=== PATIENT | female | born 1955 | race Caucasian/White ===

== ENCOUNTER 2016-09-03 16:43 | Emergency (ER) | payer BC, OTHER ==
[2016-09-03 16:54] VITALS: O2SAT 95
--- NOTE | 2016-09-03 17:09 | ERPHSYRPT ---
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 no swelling or bruising noted to lt ankle. pain radiates up to lt calf mid. pedal pulse present. no other injury Triage Nursing Assessment: see triage Physician History: The patient is a 61-year-old female [place] 4 hours ago hurting her left ankle. She heard a pop and that scared her. She was able to walk on it. There is no numbness or tingling. Her past medical history is significant for a fracture in her right ankle years ago and hypertension and depression. Occurred: this afternoon, hours ago (4) Reason for Fall: lost balance, fell from standing pos Injuries/Pain Location: lower extremity Loss of Consciousness: no loss of consciousness Quality: aching Severity of Pain-Max: mild Severity of Pain-Current: mild Modifying Factors: Improves With: nothing Associated Symptoms (Fall): denies symptoms Allergies/Adverse Reactions: No Known Drug Allergies Allergy (Unverified 09/03/16 16:54) Home Medications: Losartan/Hydrochlorothiazide [Losartan-Hctz 100-25 mg Tab] 1 each PO DAILY 09/03 [History] Paroxetine HCl [Paxil] 30 mg PO DAILY 09/03/16 [History] Hx Tetanus, Diphtheria Vaccination/Date Given: Yes Hx Influenza Vaccination/Date Given: No Hx Pneumococcal Vaccination/Date Given: No Immunizations Up to Date: Yes - Review of Systems Constitutional: No Fever, No Chills Eyes: No Symptoms Ears, Nose, & Throat: No Symptoms Respiratory: No Cough, No Dyspnea Cardiac: No Chest Pain, No Edema, No Syncope Abdominal/Gastrointestinal: No Abdominal Pain, No Nausea, No Vomiting, No Diarrhea Genitourinary Symptoms: No Dysuria Musculoskeletal: Fall, Injury, Joint Pain Skin: No Rash Neurological: No Dizziness, No Focal Weakness, No Sensory Changes Psychological: No Symptoms Endocrine: No Symptoms Hematologic/Lymphatic: No Symptoms Immunological/Allergic: No Symptoms All Other Systems: Reviewed and Negative - Past Medical History Pertinent Past Medical History: Yes Cardiac History: Hypertension Other Medical History: anger issues - Past Surgical History Past Surgical History: Yes Gastrointestinal: Cholecystectomy Female Surgical History: Tubal Ligation Other Surgical History: mesh bladder - Social History Smoking Status: Current every day smoker Exposure to second hand smoke: Yes Drug Use: none Patient Lives Alone: No - Nursing Vital Signs Nursing Vital Signs: Initial Vital Signs Temperature 98.0 F Temperature Source Oral Pulse Rate 88 Respiratory Rate 18 Blood Pressure [Right Arm] 144/76 Pain Intensity 5 - [place] Coma Score Best Eye Response (Rasheed): (4) open spontaneously Best Verbal Response (Rasheed): (5) oriented Best Motor Response ([place]): (6) obeys commands [place] Total: 15 - Physical Exam General Appearance: no apparent distress, alert Head Injury: no evidence of injury Eye Exam: PERRL/EOMI ENT Exam: airway nml Neck Exam: normal inspection, No tenderness Respiratory/Chest Exam: normal breath sounds, No chest tenderness, No respiratory distress Cardiovascular Exam: normal heart sounds, regular rate/rhythm Gastrointestinal Exam: soft, No tenderness, No distention, No guarding, No ecchymosis Rectal Exam: not done Back Exam: normal inspection, No vertebral tenderness Extremity Exam: other (Examination of the left ankle reveals very mild swelling of the lateral malleolus with mild tenderness to the same region. She has mildly limited range of motion secondary to pain. The lower legs bilaterally are significant for stasis dermatitis.) Neurologic Exam: alert, oriented x 3, cooperative, sensation nml, No motor deficits Skin Exam: normal color, warm, dry SpO2 Interpretation: normal SpO2: 95 Oxygen Delivery: Room Air - Radiology Exams Left Ankle X-ray Interpretation: Teleradiologist Report, Non-displaced Fracture ( nondisplaced hairline fx of lateral malleolus per Dr León.) Ordered Tests: Active Orders 24 hr Category Date Time Status ANKLE (3 VIEWS) Stat Exams 09/03/16 17:13 Taken - Departure Time of Disposition: 18:15 Departure Disposition: Home Clinical Impression: Fracture of distal fibula Condition: Stable Critical Care Time: No Additional Instructions: You have a hairline fracture of her distal fibula. Wear the Aircast splint until released and use crutches until released. Take Tylenol No. 3 one tablet every 4 hours as needed for pain. Elevate as needed. Apply ice as needed. Follow-up on Monday. Prescriptions: Codeine Phosphate/APAP #3 [Tylenol #3 Tablet] 1 tab PO Q4H PRN PRN #10 tablet PRN Reason: Pain
[2016-09-03 18:33] VITALS: BP 134/69; PULSE 80
--- NOTE | 2016-09-03 20:14 | XRAY ---
Indication: Lateral ankle pain following fall. Comparison: None 3 views of the left ankle demonstrates nondisplaced oblique hairline fracture involving the lateral malleolus with soft tissue swelling. Incidental spurring of the calcaneus/distal tibia anteriorly and a large os tibiale externum. No other bony, articular, or soft tissue abnormalities.
== END 2016-09-03 18:50 | disposition home or self-care (01) ==
LOC: ED 16:43
DX: S82.832A Other fracture of upper and lower end of left fibula, initial encounter for closed fracture (principal); W18.39XA Other fall on same level, initial encounter; Y92.838 Other recreation area as the place of occurrence of the external cause; I10 Essential (primary) hypertension
CPT/HCPCS: 73610; 99283

== ENCOUNTER 2021-06-02 14:56 | Emergency (ER) | payer BC ==
--- NOTE | 2021-06-02 15:13 | ERPHSYRPT ---
- History of Present Illness Time Seen by Provider: 06/02/21 15:12 Historian: patient Exam Limitations: no limitations Physician History: This is an obese 65-year-old patient of Dr. Underwood who has a history of hypertension and depression and gives a history that she slid yesterday without falling but did feel a stretch in the right groin area. She stated she did not have much pain yesterday but today, at 2 AM, there was a sudden increase in pain in the right groin into the pelvic area on the right and also into the right hip. Patient has not had any nausea vomiting or diarrhea. She has not had a fever. She has not noticed any dysuria or urinary frequency. She has not noticed any hematuria. Patient denies chest pain. Patient denies shortness of breath. Patient states it hurts in these areas to ambulate. Timing/Duration: today, yesterday Activities at Onset: rest Quality: sharpness, stabbing Abdominal Pain Onset Location: suprapubic (Right side), other (Right groin and right hip) Pain Radiation: groin, other (Right hip/buttock) Severity of Pain-Max: moderate Severity of Pain-Current: moderate (When ambulating) Associated Symptoms: denies symptoms Previous symptoms: no prior history Allergies/Adverse Reactions: No Known Drug Allergies Allergy (Verified 06/02/21 15:22) Home Medications: Losartan/Hydrochlorothiazide [Losartan-Hctz 100-25 mg Tab] 1 each PO DAILY 09/03/16 [History] PARoxetine HCl [Paxil] 30 mg PO DAILY 09/03/16 [History] Hx Tetanus, Diphtheria Vaccination/Date Given: Yes Hx Influenza Vaccination/Date Given: No Hx Pneumococcal Vaccination/Date Given: No Travel Risk - International Travel Have you traveled outside of the country in past 3 weeks: No - Coronavirus Screening Are you exhibiting any of the following symptoms?: No Close contact with a COVID-19 positive Pt in past 14-21 Days: No - Review of Systems Constitutional: No Symptoms Eyes: No Symptoms Ears, Nose, & Throat: No Symptoms Respiratory: No Symptoms Cardiac: No Symptoms Abdominal/Gastrointestinal: No Symptoms, No Abdominal Pain, No Nausea, No Vomiting, No Diarrhea Genitourinary Symptoms: No No Symptoms Musculoskeletal: Joint Pain (Right hip and buttock) Skin: No Symptoms Neurological: No Symptoms Psychological: No Symptoms Endocrine: No Symptoms Hematologic/Lymphatic: No Symptoms Immunological/Allergic: No Symptoms All Other Systems: Reviewed and Negative - Past Medical History Pertinent Past Medical History: Yes Cardiac History: Hypertension Other Medical History: anger issues - Past Surgical History Past Surgical History: Yes Gastrointestinal: Cholecystectomy Female Surgical History: Tubal Ligation Other Surgical History: mesh bladder - Social History Smoking Status: Current every day smoker Exposure to second hand smoke: Yes Drug Use: none Patient Lives Alone: No - Nursing Vital Signs Nursing Vital Signs: Initial Vital Signs Temperature 98.6 F 06/02/21 15:07 Pulse Rate 70 06/02/21 15:07 Blood Pressure 168/80 06/02/21 15:07 O2 Sat by Pulse Oximetry 98 06/02/21 15:07 Pain Scale Pain Intensity 8 - Physical Exam General Appearance: no apparent distress, alert, anxiety, obese Eye Exam: PERRL/EOMI, eyes nml inspection Ears, Nose, Throat Exam: normal ENT inspection, moist mucous membranes Neck Exam: normal inspection, non-tender, supple, full range of motion Respiratory Exam: airway intact, No chest tenderness, No respiratory distress Gastrointestinal/Abdomen Exam: soft, normal bowel sounds, tenderness (Along the pelvic brim right side), No guarding, No rebound Pelvic Exam: not done Rectal Exam: not done Back Exam: normal inspection, normal range of motion, No CVA tenderness, No vertebral tenderness Extremity Exam: tenderness (Right inguinal region), other (No right inguinal hernia appreciated on exam) Neurologic Exam: alert, oriented x 3, cooperative, bellstand attendant II-XII nml as tested, normal mood/affect, sensation nml Skin Exam: normal color, warm, dry Lymphatic Exam: No adenopathy SpO2 Interpretation: normal O2 Delivery: Room Air - Course Nursing assessment & vital signs reviewed: Yes Ordered Tests: Active Orders 24 hr Category Date Time Status IV Insertion STAT Care 06/02/21 15:16 Active ABDOMEN AND PELVIS W/0 CONTRAS [CT] Stat Exams 06/02/21 15:17 Completed AMYLASE Stat Lab 06/02/21 15:32 Completed CBC W DIFF Stat Lab 06/02/21 15:32 Completed CMP Stat Lab 06/02/21 15:32 Completed LIPASE Stat Lab 06/02/21 15:32 Completed Lactic Acid Stat Lab 06/02/21 16:06 Completed UA W/RFX UR CULTURE Stat Lab 06/02/21 15:17 Completed Lab/Rad Data: Laboratory Result Diagrams 06/02/21 15:32 06/02/21 15:32 Laboratory Results 06/02/21 06/02/21 06/02/21 Range/Units 16:06 15:32 15:32 WBC 11.3 H (4.0-10.5) K/mm3 RBC 5.08 (4.1-5.4) M/mm3 Hgb 14.8 (12.0-16.0) gm/dl Hct 44.9 (35-47) % MCV 88.4 (78-100) fl MCH 29.1 (26-32) pg MCHC 33.0 (32-36) g/dl RDW 13.2 (11.5-14.0) % Plt Count 293 (150-450) K/mm3 MPV 9.4 (7.5-11.0) fl Gran % 64.8 (36.0-66.0) % Eos # (Auto) 0.21 (0-0.5) Absolute Lymphs (auto) 2.76 (1.0-4.6) Absolute Monos (auto) 0.95 (0.0-1.3) Lymphocytes % 24.4 (24.0-44.0) % Monocytes % 8.4 (0.0-12.0) % Eosinophils % 1.9 (0.00-5.0) % Basophils % 0.5 (0.0-0.4) % Absolute Granulocytes 7.33 H (1.4-6.9) Basophils # 0.06 (0-0.4) Sodium 139 (137-145) mmol/L Potassium 3.9 (3.5-5.1) mmol/L Chloride 105 (98-107) mmol/L Carbon Dioxide 27 (22-30) mmol/L Anion Gap 11.0 (5-15) MEQ/L BUN 10 (7-17) mg/dL Creatinine 0.59 (0.52-1.04) mg/dL Estimated GFR > 60.0 ML/MIN Glucose 102 (74-106) mg/dL Lactic Acid 1.1 (0.4-2.0) Calcium 9.8 (8.4-10.2) mg/dL Total Bilirubin 0.70 (0.2-1.3) mg/dL AST 27 (14-36) U/L ALT 19 (0-35) U/L Alkaline Phosphatase 78 (38-126) U/L Serum Total Protein 7.2 (6.3-8.2) g/dL Albumin 4.1 (3.5-5.0) g/dL Amylase 51 (30-110) U/L Lipase 79 (23-300) U/L Urine Color (YELLOW) Urine Appearance (CLEAR) Urine pH (5-6) Ur Specific [place] (1.005-1.025) Urine Protein (Negative) Urine Ketones (NEGATIVE) Urine Blood (0-5) Ilya/ul Urine Nitrite (NEGATIVE) Urine Bilirubin (NEGATIVE) Urine Urobilinogen (0-1) mg/dL Ur Leukocyte Esterase (NEGATIVE) Urine WBC (Auto) (0-5) /HPF Urine RBC (Auto) (0-2) /HPF U Epithel Cells (Auto) (FEW) /HPF Urine Bacteria (Auto) (NEGATIVE) /HPF Urine Culture Reflexed (NO) Urine Glucose (NEGATIVE) mg/dL 06/02/21 Range/Units 15:17 WBC (4.0-10.5) K/mm3 RBC (4.1-5.4) M/mm3 Hgb (12.0-16.0) gm/dl Hct (35-47) % MCV (78-100) fl MCH (26-32) pg MCHC (32-36) g/dl RDW (11.5-14.0) % Plt Count (150-450) K/mm3 MPV (7.5-11.0) fl Gran % (36.0-66.0) % Eos # (Auto) (0-0.5) Absolute Lymphs (auto) (1.0-4.6) Absolute Monos (auto) (0.0-1.3) Lymphocytes % (24.0-44.0) % Monocytes % (0.0-12.0) % Eosinophils % (0.00-5.0) % Basophils % (0.0-0.4) % Absolute Granulocytes (1.4-6.9) Basophils # (0-0.4) Sodium (137-145) mmol/L Potassium (3.5-5.1) mmol/L Chloride (98-107) mmol/L Carbon Dioxide (22-30) mmol/L Anion Gap (5-15) MEQ/L BUN (7-17) mg/dL Creatinine (0.52-1.04) mg/dL Estimated GFR ML/MIN Glucose (74-106) mg/dL Lactic Acid (0.4-2.0) Calcium (8.4-10.2) mg/dL Total Bilirubin (0.2-1.3) mg/dL AST (14-36) U/L ALT (0-35) U/L Alkaline Phosphatase (38-126) U/L Serum Total Protein (6.3-8.2) g/dL Albumin (3.5-5.0) g/dL Amylase (30-110) U/L Lipase (23-300) U/L Urine Color COLORLESS (YELLOW) Urine Appearance CLEAR (CLEAR) Urine pH 6.0 (5-6) Ur Specific [place] 1.002 (1.005-1.025) Urine Protein NEGATIVE (Negative) Urine Ketones NEGATIVE (NEGATIVE) Urine Blood SMALL (0-5) Ilya/ul Urine Nitrite NEGATIVE (NEGATIVE) Urine Bilirubin NEGATIVE (NEGATIVE) Urine Urobilinogen NEGATIVE (0-1) mg/dL Ur Leukocyte Esterase NEGATIVE (NEGATIVE) Urine WBC (Auto) NONE (0-5) /HPF Urine RBC (Auto) NONE (0-2) /HPF U Epithel Cells (Auto) RARE (FEW) /HPF Urine Bacteria (Auto) NONE (NEGATIVE) /HPF Urine Culture Reflexed NO (NO) Urine Glucose NEGATIVE (NEGATIVE) mg/dL - Progress Progress: improved, pain not gone completely Progress Note: 06/02/21 16:54 CAT scan of the abdomen pelvis out contrast shows a small left adrenal adenoma. There is no evidence of any incarcerated hernias within the pelvis or abdomen. No evidence of any bony fractures per radiologist Counseled pt/family regarding: diagnosis, need for follow-up, rad results - Departure Departure Disposition: Home Clinical Impression: Muscle strain Condition: Stable Critical Care Time: No Referrals: CHERYL UNDERWOOD MD [Primary Care Provider] - Follow up/PCP as directed Additional Instructions: Take your medication as prescribed. Follow-up with your primary care provider for further evaluation and management. Prescriptions: Oxycodone HCl/Acetaminophen [Percocet 5-325 mg Tablet] 1 each PO Q8H PRN PRN #10 tablet MDD 3 PRN Reason: Moderate To Severe Pain Prednisone 10 mg [Deltasone 10 mg] 10 mg PO TID #12 tablet Orphenadrine Citrate 100 mg [Norflex 100 MG Tablet] 100 mg PO BID #10 tab
[2021-06-02 15:22] VITALS: O2SAT 98
[2021-06-02 15:35] LABS: Absolute Neutrophil Ct (ANC) 7.33 (1.4-6.9); Basophil (Absolute #) 0.06 (0-0.4); Eosinophil % 1.9 % (0.00-5.0); Eosinophil (Absolute #) 0.21 (0-0.5); Hematocrit 44.9 % (35-47); Hemoglobin 14.8 gm/dl (12.0-16.0); Lymphocyte (Absolute #) 2.76 (1.0-4.6); Lymphocytes % 24.4 % (24.0-44.0); Mean Cell Volume 88.4 fl (78-100); Mean Corpuscular Hemoglobin 29.1 pg (26-32); Mean Platelet Volume 9.4 fl (7.5-11.0); Monocyte (Absolute #) 0.95 (0.0-1.3); Monocytes % 8.4 % (0.0-12.0); Neutrophil % 64.8 % (36.0-66.0); Platelet Count 293 K/mm3 (150-450); Red Blood Count 5.08 M/mm3 (4.1-5.4); Red Cell Distribution Width 13.2 % (11.5-14.0); White Blood Count 11.3 K/mm3 (4.0-10.5)
[2021-06-02 15:45] LABS: Appearance CLEAR (CLEAR); Bilirubin NEGATIVE (NEGATIVE); Blood SMALL Ery/ul (0-5); Epithelial Cells RARE /HPF (FEW); Glucose NEGATIVE (NEGATIVE); Ketones NEGATIVE (NEGATIVE); Leukocyte Esterase NEGATIVE (NEGATIVE); Nitrite NEGATIVE (NEGATIVE); Protein,Urine Dip NEGATIVE (Negative); Specific Gravity 1.002 (1.005-1.025); Urobilinogen NEGATIVE mg/dL (0-1)
[2021-06-02 15:47] LABS: ALBUMIN 4.1 g/dL (3.5-5.0); ALKALINE PHOSPHATASE 78 U/L (38-126); AMYLASE 51 U/L (30-110); BLOOD UREA NITROGEN 10 mg/dL (7-17); CHLORIDE 105 mmol/L (98-107); Calcium 9.8 mg/dL (8.4-10.2); Carbon Dioxide 27 mmol/L (22-30); Creatinine 1 0.59 mg/dL (0.52-1.04); EST GLOMERULAR FILTRATION RATE > 60.0 ML/MIN; Glucose 102 mg/dL (74-106); LIPASE 79 U/L (23-300); Potassium 3.9 mmol/L (3.5-5.1); SGOT/AST 27 U/L (14-36); SGPT/ALT 19 U/L (0-35); SODIUM 139 mmol/L (137-145); Total Protein 7.2 g/dL (6.3-8.2)
[2021-06-02 16:06] VITALS: BP 158/97; PULSE 68
--- NOTE | 2021-06-02 16:47 | XRAY ---
Indication: Right pelvis/groin pain. Multiple contiguous axial images obtained through the abdomen and pelvis without contrast. Comparison: July 29, 2009. Lung bases demonstrates bibasilar fibrosis/scarring. No infiltrate or effusion. Heart not enlarged. Noncontrasted stomach and bowel loops appear nonobstructed with normal appendix. Minimal scattered colonic diverticulosis without diverticulitis. 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 No free fluid/air. Stable 1.2 cm left adrenal adenoma. Remaining liver, pancreas, spleen, adrenal glands, kidneys, ureters, bladder, and uterus are unremarkable for noncontrast exam. Minimal aortoiliac calcifications without AAA. Osseous structures intact again with mild multilevel thoracolumbar degenerative spondylosis and minimal grade 1 L4 spondylolisthesis. No ventral or inguinal hernias. Impression: 1. Again colonic diverticulosis, small left adrenal adenoma, multilevel degenerative spondylosis, and minimal grade 1 L4 spondylolisthesis. 2. Remaining CT abdomen/pelvis without contrast exam is negative.
[2021-06-02] MEDS ORDERED: Zofran 4 MG/2 ML VIAL IV ONE (16:59)
[2021-06-02] MEDS ORDERED: Hydromorphone 1 mg/ml Injection IV ONE (16:59)
[2021-06-02] MEDS ORDERED: solu-MEDROL 125 MG, Sterile H2O 10 ml 2 ML IV ONE ×2 (17:00)
[2021-06-02] MEDS ORDERED: Norflex 60 MG/2 ML IV ONE (17:00)
[2021-06-02] MEDS ORDERED: solu-MEDROL ONE (17:06)
[2021-06-02] MEDS ORDERED: Zofran 4 MG/2 ML VIAL ONE (17:06)
[2021-06-02] MEDS ORDERED: Sterile H2O 10 ml IJ ONE (17:06)
[2021-06-02] MEDS ORDERED: Hydromorphone 1 mg/ml Injection ONE (17:06)
[2021-06-02] MEDS ORDERED: Norflex 60 MG/2 ML ONE (17:06)
[2021-06-04 00:04] LABS: Slide Review 1 YES
== END 2021-06-02 17:42 | disposition home or self-care (01) ==
LOC: ED 14:56
DX: S39.011A Strain of muscle, fascia and tendon of abdomen, initial encounter (principal); W18.40XA Slipping, tripping and stumbling without falling, unspecified, initial encounter; I10 Essential (primary) hypertension; Z72.0 Tobacco use; Z79.899 Other long term (current) drug therapy; Z79.891 Long term (current) use of opiate analgesic; Z79.52 Long term (current) use of systemic steroids
CPT/HCPCS: 36000; 36415; 74176; 80053; 81001; 82150; 83605; 83690; 85025; 96374; 96375; 99284; J1170; J2360; J2405; J2930